=== PATIENT | male | born 1950 | race Caucasian/White ===

== ENCOUNTER 2016-11-04 09:57 | Emergency (ER) | payer OTHER ==
--- NOTE | 2016-11-04 11:58 | UC ---
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 HE NOTICED IT WAS ON HIS HANDS TOO AND WHEN HE WENT TO LUNCH HE FELT DISORIENTED AND HAD SOME CHEST TIGHTNESS, NAUSEA AND COUGH. HE THINKS HE MAY HAVE INHALED IT SO HE WENT TO [facility] . THEY GAVE HIM A BREATHING TX AND GOT AN EKG WHICH PT SAID WAS NORMAL. THEY ADVISED TRANSFER TO ER FOR FURTHER EVAL WHICH PT DECLINED. CAME HERE TODAY SX ARE NOT BETTER. FELT SOB WHILE MOVING SOME FIREWOOD WHICH IS NOT TYPICAL FOR HIM. - History of Current Complaint Chief Complaint: UCRespiratory Stated Complaint: MOLD INHALATION Time Seen by Provider: 11/04/16 11:46 Hx Obtained From: Patient Onset/Duration: Gradual Onset, Lasting Hours, Still Present Onset Severity: Moderate Current Severity: Moderate Pain Intensity: 5 Associated Signs & Symptoms: Positive: Cough, Chest Pain, Dizziness, Nausea, SOB. Negative: Diaphoresis, Fever, Vomiting, Wheezing, Weakness - Allergy/Home Medications Allergies/Adverse Reactions: Allergies Allergy/AdvReac Type Severity Reaction Status Date / Time No Known Allergies Allergy Verified 02/23/15 16:47 PMH/Surg Hx/FS Hx/Imm Hx Previously Healthy: Yes Endocrine History Of: Denies: Diabetes, Thyroid Disease, Hyperthyroidism, Hypothyroidism Cardiovascular History Of: Denies: Cardiac Disorders, Hypertension, Pacemaker/ICD Respiratory History Of: Denies: Asthma GI/ History Of: Denies: Renal Disease Neurological History Of: Denies: TIA, Seizures Psychological History Of: Denies: Anxiety, Depression - Surgical History Surgical History: Yes Surgery Procedure, Year, and Place: Varicose vein striping (L) (mid ); lumbar laminectomy(); ankle (R) surgery with screws (early 1999 something ); lumbar surgery for disc (around 2009); tonsils; - Family History Known Family History: Positive: Cardiac Disease, Hypertension - Social History Alcohol Use: Occasionally Substance Use Type: None Smoking Status (MU): Never Smoked Tobacco Review of Systems Constitutional: Negative Respiratory: Shortness Of Breath, Cough Cardiovascular: Chest Pain Gastrointestinal: Other - NAUSEA All Other Systems Reviewed And Are Negative: Yes Physical Exam Triage Information Reviewed: Yes Appearance: Well-Appearing, No Pain Distress, Well-Nourished Vital Signs: Initial Vital Signs Temp 98.0 F 03/31/17 11:34 Pulse 68 11/04/16 11:34 Resp 18 11/04/16 11:34 BP 114/70 11/04/16 11:34 Pulse Ox 98 11/04/16 11:34 Vital Signs Reviewed: Yes Eyes: Positive: Conjunctiva Clear ENT: Positive: Hearing grossly normal Neck: Positive: Supple, Nontender, No Lymphadenopathy Respiratory Exam: Normal Cardiovascular Exam: Normal Abdomen Description: Positive: Soft Musculoskeletal: Positive: No Edema Neurological: Positive: Alert Psychological: Positive: Age Appropriate Behavior Skin: Negative: rashes Diagnostics - Radiology CXR Xray Interpretation: No Acute Changes Radiology Interpretation Completed By: Radiologist - EKG Cardiac Rate: Bradycardia - 53 BPM Cardiac Rhythm: Sinus: Normal Ectopy: None ST Segment: Normal Course/Dx - Course Course Of Treatment: EKG UNREMARKABLE. CXR UNREMARKABLE. PT DECLINES ER TRANSFER. DISCUSSED POSSIBILITY OF CARDIAC ETIOLOGY AND PT CONTINUES TO DECLINE. WILL GO TO ER IF SYMPTOMS PERSIST. - Differential Dx - Multi-Symptom Provider Diagnoses: SOB/COUGH/CHEST PAIN Discharge - Discharge Plan Condition: Stable Disposition: AGAINST MEDICAL ADVICE Referrals: Daniel Cardoso MD [Primary Care Provider] - If Needed Additional Instructions: YOUR SYMPTOMS MAY OR MAY NOT BE DUE TO INHALATION OF A QUESTIONABLE SUBSTANCE. YOUR EKG AND CHEST XRAY ARE UNREMARKABLE. WE DISCUSSED TRANSFER TO ER BASED ON YOUR SYMPTOMS TO FURTHER EVALUATE BUT YOU HAVE DECLINED. GO TO THE ER WITHOUT FAIL IF YOUR SYMPTOMS WORSEN OR DO NOT IMPROVE.
--- NOTE | 2016-11-04 12:38 | RAD ---
INDICATION: Shortness of breath. COMPARISON: Comparison is made with a prior study from January 04, 2011. TECHNIQUE: Dual-energy PA and lateral views of the chest were obtained. FINDINGS: The heart is within normal limits in size. Mediastinal and hilar contours appear within normal limits. The lungs are mildly hyperinflated with flattening of the diaphragms suggestive of chronic obstructive pulmonary disease. There is a small pulmonary nodule which projects in the left midlung measuring approximate 4 mm in size which is unchanged from the prior study. The lungs are otherwise clear. No pleural effusion is seen. IMPRESSION: FINDINGS SUGGESTIVE OF COPD, NO EVIDENCE FOR ACUTE FINDING.
[2016-11-04 12:59] VITALS: BP 102/67
== END 2016-11-04 12:55 | disposition left against medical advice (07) ==
LOC: UCEAST 09:57
DX: R06.02 Shortness of breath (principal); R05 Cough; R07.9 Chest pain, unspecified
CPT/HCPCS: 71020; 93005; 99212; G0463

== ENCOUNTER 2016-11-06 01:26 | Emergency (ER) | payer OTHER ==
[2016-11-06] MEDS ORDERED: predniSONE TAB* 20 MG PO ONE (01:48)
[2016-11-06 02:12] LABS: Hematocrit 40 % (42-52); Hemoglobin 13.2 g/dl (14.0-18.0); Mean Corpuscular HGB Conc 33 g/dl (31-36); Mean Corpuscular Hemoglobin 27 pg (27-31); Mean Corpuscular Volume 83 fL (80-94); Mean Platelet Volume 8 um3 (7.4-10.4); Red Blood Count 4.87 10^6/ul (4.0-5.4); Red Cell Distribution Width 14 % (10.5-15); White Blood Count 4.9 10^3/ul (3.5-10.8)
[2016-11-06 02:30] LABS: Albumin 4.1 g/dL (3.2-5.2); BUN/Creatinine Ratio 20.8 (8-20); Calcium 9.3 mg/dL (8.6-10.3); EGFR African American 95.6 (>60); EGFR Non-African American 74.4 (>60); Globulin 2.8 g/dL (2-4); Total Bilirubin 0.5 mg/dL (0.2-1.0); Total Protein 6.9 g/dL (6.4-8.9)
--- NOTE | 2016-11-06 02:54 | ED ---
Spencer Melton Erika, scribed for Raffaele Obando MD on 11/06/16 at 0149 . Shortness of Breath - HPI Summary HPI Summary: Patient is a 66-year-old male presenting to the ED with a CC of SOB. Patient reports that he accidentally inhaled mold spores at work on 11/03/2016, and has been experiencing SOB ever since, worse with exertion. Associated symptoms include chest pain and chest tightness. Patient has been seen twice before for the same complaint at [facility] and [facility], and was treated with a duonebulizer at [facility] which did not help symptoms. Patient is followed by Dr. Cadroso. - History of Current Complaint Chief Complaint: EDShortnessOfBreath Time Seen by Provider: 11/06/16 01:41 Hx Obtained From: Patient Onset/Duration: Gradual Onset, Lasting Days, Still Present Timing: Constant Alleviating Factors: Nothing Associated Signs & Symptoms: Chest Pain Unrelated to Cough - Allergy/Home Medications Allergies/Adverse Reactions: Allergies Allergy/AdvReac Type Severity Reaction Status Date / Time No Known Allergies Allergy Verified 11/06/16 03:48 PMH/Surg Hx/FS Hx/Imm Hx Endocrine/Hematology History: Denies: Hx Diabetes, Hx Thyroid Disease Cardiovascular History: Denies: Hx Hypercholesterolemia, Hx Hypertension, Hx Pacemaker/ICD, Hx Peripheral Vascular Disease Respiratory History: Denies: Hx Asthma, Hx Chronic Obstructive Pulmonary Disease (COPD), Other Respiratory Problems/Disorders History: Denies: Hx Renal Disease Musculoskeletal History: Reports: Hx Arthritis Denies: Hx Osteoporosis, Hx Scoliosis Sensory History: Denies: Hx Cataracts, Hx Contacts or Glasses, Hx Glaucoma, Hx Hearing Aid Opthamlomology History: Denies: Hx Cataracts, Hx Contacts or Glasses, Hx Glaucoma Neurological History: Denies: Hx Headaches, Hx Seizures, Hx Transient Ischemic Attacks (TIA), Other Neuro Impairments/Disorders Psychiatric History: Denies: Hx Anxiety, Hx Depression, Hx Panic Disorder - Cancer History Cancer Type, Location and Year: melanoma removed, no chemo Hx Chemotherapy: No Hx Radiation Therapy: No - Surgical History Surgery Procedure, Year, and Place: Varicose vein striping (L) (mid ); lumbar laminectomy(); ankle (R) surgery with screws (early 1999 ); lumbar surgery for disc (around 2009); tonsils; Infectious Disease History: No Infectious Disease History: Denies: Traveled Outside the [place] in Last 30 Days - Family History Known Family History: Positive: Cardiac Disease, Hypertension - Social History Occupation: Employed Full-time Alcohol Use: Occasionally Hx Substance Use: No Substance Use Type: Reports: None Hx Tobacco Use: No Smoking Status (MU): Never Smoked Tobacco Review of Systems Positive: Chest Pain Positive: Shortness Of Breath All Other Systems Reviewed And Are Negative: Yes Physical Exam Triage Information Reviewed: Yes Vital Signs On Initial Exam: Initial Vitals Temp Pulse Resp BP Pulse Ox 98 F 65 18 134/81 100 11/06/16 01:31 11/06/16 01:31 11/06/16 01:31 11/06/16 01:31 11/06/16 01:31 Vital Signs Reviewed: Yes Appearance: Positive: Well-Appearing, No Pain Distress Skin: Positive: Warm Head/Face: Positive: Normal Head/Face Inspection Eyes: Positive: ERLINDA ENT: Positive: Hearing grossly normal Neck: Positive: Supple Respiratory/Lung Sounds: Positive: Breath Sounds Present, Wheezes - few Cardiovascular: Positive: RRR Abdomen Description: Positive: Nontender, Soft Bowel Sounds: Positive: Present Musculoskeletal: Positive: Strength/ROM Intact Psychiatric: Positive: Anxious Diagnostics - Vital Signs Vital Signs Temp Pulse Resp BP Pulse Ox 11/06/16 01:31 98 F 65 18 134/81 100 - Laboratory Lab Results: Lab Results 11/06/16 11/06/16 11/06/16 Range/Units 02:03 02:03 02:03 WBC 4.9 (3.5-10.8) 10^3/ul RBC 4.87 (4.0-5.4) 10^6/ul Hgb 13.2 L (14.0-18.0) g/dl Hct 40 L (42-52) % MCV 83 (80-94) fL MCH 27 (27-31) pg MCHC 33 (31-36) g/dl RDW 14 (10.5-15) % Plt Count 202 (150-450) 10^3/ul MPV 8 (7.4-10.4) um3 Neut % (Auto) 38.0 (38-83) % Lymph % (Auto) 42.9 (25-47) % [place] % (Auto) 8.6 (1-9) % Eos % (Auto) 9.7 H (0-6) % Baso % (Auto) 0.8 (0-2) % Absolute Neuts (auto) 1.9 (1.5-7.7) 10^3/ul Absolute Lymphs (auto) 2.1 (1.0-4.8) 10^3/ul Absolute Monos (auto) 0.4 (0-0.8) 10^3/ul Absolute Eos (auto) 0.5 (0-0.6) 10^3/ul Absolute Basos (auto) 0 (0-0.2) 10^3/ul Absolute Nucleated RBC 0 10^3/ul Nucleated RBC % 0 D-Dimer, Quantitative < 200 (Less Than 230) ng/mL Sodium 136 (133-145) mmol/L Potassium 4.0 (3.5-5.0) mmol/L Chloride 104 (101-111) mmol/L Carbon Dioxide 27 (22-32) mmol/L Anion Gap 5 (2-11) mmol/L BUN 21 (6-24) mg/dL Creatinine 1.01 (0.67-1.17) mg/dL Est GFR ( Amer) 95.6 (>60) Est GFR (Non-Af Amer) 74.4 (>60) BUN/Creatinine Ratio 20.8 H (8-20) Glucose 97 (70-100) mg/dL Calcium 9.3 (8.6-10.3) mg/dL Total Bilirubin 0.50 (0.2-1.0) mg/dL AST 19 (13-39) U/L ALT 13 (7-52) U/L Alkaline Phosphatase 47 (34-104) U/L Troponin I 0.00 (<0.04) ng/mL Total Protein 6.9 (6.4-8.9) g/dL Albumin 4.1 (3.2-5.2) g/dL Globulin 2.8 (2-4) g/dL Albumin/Globulin Ratio 1.5 (1-3) Result Diagrams: 11/06/16 02:03 11/06/16 02:03 Lab Statement: Any lab studies that have been ordered have been reviewed, and results considered in the medical decision making process. - EKG 01:43 Cardiac Rate: Bradycardia - at 57 bpm EKG Rhythm: Sinus Bradycardia Re-Evaluation - Re-Evaluation First Eval Re-Evaluation Time: 02:59 Change: Improved Comment: Discussed lab results and EKG results with patient Course/Dx - Course Assessment/Plan: Patient is a 66 y/o M presenting to the ED with a CC of SOB and chest tightness since he inhaled mold a few days ago. EKG shows sinus bradycardia. Blood work WNL with troponin of 0.00 and D dimer <200. Patient will be discharged home with a prescription for prednisone and follow up from his PCP. - Diagnoses Provider Diagnoses: Bronchospasm Discharge - Discharge Plan Condition: Improved Disposition: HOME Prescriptions: predniSONE TAB* [Deltasone TAB*] 40 mg PO DAILY #8 tab Patient Education Materials: General Allergic Reaction (ED) Referrals: Daniel Cardoso MD [Primary Care Provider] - Additional Instructions: Please follow up with your PCP The documentation as recorded by the Spencer phipps Erika accurately reflects the service I personally performed and the decisions made by me, Raffaele Obando MD.
[2016-11-06 03:43] VITALS: BP 116/64
== END 2016-11-06 03:42 | disposition home or self-care (01) ==
LOC: ED 01:26
DX: J98.01 Acute bronchospasm (principal); R06.02 Shortness of breath; R07.9 Chest pain, unspecified
CPT/HCPCS: 36415; 80053; 84484; 85025; 85379; 93005; 99283; J7512

== ENCOUNTER 2023-08-27 11:44 | Observation (INO) ==
[2023-08-27 12:09] LABS: ABS Basophils 0.1 10^3/uL (0.0-0.1); ABS Eosinophils 0.1 10^3/uL (0.0-0.5); ABS Lymphocytes 1.8 10^3/uL (1.0-4.8); ABS Monocytes 0.4 10^3/uL (0.0-1.1); ABS Neutrophils 2.3 10^3/uL (1.5-7.6); Eosinophil % 2.6 %; Lymphocyte % 37.9 %; Mean Corpuscular Hemoglobin 28.1 pg (27-33); Mean Corpuscular Hgb Conc 33.4 g/dL (31-36); Mean Corpuscular Volume 84.1 fL (80-97); Mean Platelet Volume 7.7 fL (7.5-11.2); Platelet Count 216 10^3/uL (150-450); Red Blood Count 4.99 10^6/uL (4.06-5.63); Red Cell Distribution Width 14.2 % (12-17); White Blood Count 4.7 10^3/uL (3.6-10.2)
[2023-08-27 12:18] LABS: INR 1.05 (0.83-1.13)
[2023-08-27 12:26] LABS: ALT 17 U/L (7-52); AST 25 U/L (13-39); Albumin 4.8 g/dL (3.2-5.2); Albumin/Globulin Ratio 1.7 (1-3); Alkaline Phosphatase 72 U/L (35-149); Anion Gap 9 mmol/L (2-16); Blood Urea Nitrogen 15 mg/dL (6-24); CO2 Carbon Dioxide 27 mmol/L (22-32); Calcium 9.7 mg/dL (8.6-10.3); Chloride 104 mmol/L (101-111); Creatinine, Serum 1.19 mg/dL (0.67-1.17); Globulin 2.9 g/dL (2-4); Glucose 100 mg/dL (70-100); Potassium 4.9 mmol/L (3.5-5.0); Sodium 140 mmol/L (135-145); Total Bilirubin 0.8 mg/dL (0.2-1.0); Total Protein 7.7 g/dL (6.4-8.9); eGFR CKD-EPI 65.3 (>60)
[2023-08-27 12:32] LABS: High Sens Troponin Baseline < 3 pg/mL (<20)
[2023-08-27] MEDS ORDERED: NS 0.9% 1000 ml BAG 1,000 ML IV ONE (12:40)
[2023-08-27] MEDS ORDERED: Iohexol 350 (CONTRAST) 500 ML MDV IV ONE (13:20)
[2023-08-27] MEDS: Enoxaparin 40 MG/0.4 ML SYR SUBCUT SCH (16:41)
[2023-08-27 19:15] LABS: Rapid COVID-19 Molecular Undetected (Undetected)
[2023-08-27 19:25] LABS: Influenza A Molecular Negative (Negative); Influenza B Molecular Negative (Negative)
[2023-08-28 14:30] VITALS: BP 112/66
[2023-08-28] MEDS: Enoxaparin 40 MG/0.4 ML SYR SUBCUT SCH (16:43)
[2023-08-29] MEDS ORDERED: Aspirin EC 81 mg TAB.EC (enteric coated) PO SCH (09:00)
== END 2023-08-28 17:52 | disposition home or self-care (01) ==
LOC: ED 11:44 → EDHOLD 11:44 → SUATTDRO 16:41 → MEDTELE 20:56
PROVIDERS: ADMIT Student in an Organized Health Care Education/Training Program; ATTEND Hospitalist